=== PATIENT | male | born 1955 | race Caucasian/White ===

== ENCOUNTER 2022-08-26 17:28 | Emergency (ER) | payer BC, MEDICARE | END 2022-08-26 20:00 | disposition home or self-care (01) | LOC: JP.ED 17:28 | DX: S20.212A Contusion of left front wall of thorax, initial encounter (principal); S00.01XA Abrasion of scalp, initial encounter; W18.30XA Fall on same level, unspecified, initial encounter; W22.8XXA Striking against or struck by other objects, initial encounter | CPT/HCPCS: 71250; 99283 ==

== ENCOUNTER 2023-02-21 14:12 | Emergency (ER) | payer BC, MEDICARE | END 2023-02-21 18:21 | disposition home or self-care (01) | LOC: JP.ED 14:12 | DX: S06.0X9A Concussion with loss of consciousness of unspecified duration, initial encounter (principal); W01.198A Fall on same level from slipping, tripping and stumbling with subsequent striking against other object, initial encounter | CPT/HCPCS: 70450; 99284 ==

== ENCOUNTER 2023-10-06 08:41 | Day surgery (SDC) | payer MEDICARE ==
[2023-10-06] MEDS: Sodium Chloride 0.9% 1,000 ML IV SCH (09:31)
[2023-10-06] MEDS ORDERED: fentaNYL 50 MCG/ML SDV ONE (09:35)
[2023-10-06] MEDS ORDERED: Midazolam 1 MG/ML 2 ML SDV ONE (09:35)
[2023-10-06] MEDS ORDERED: Propofol 200 MG/20 ML SDV ONE (09:35)
== END 2023-10-06 11:50 | disposition home or self-care (01) ==
LOC: JP.SDS 08:41
PROVIDERS: ATTEND Surgery
DX: Z12.11 Encounter for screening for malignant neoplasm of colon (principal); K57.30 Diverticulosis of large intestine without perforation or abscess without bleeding
CPT/HCPCS: 00812; G0121; J2250; J2704; J3010; J7030

== ENCOUNTER 2024-12-19 08:14 | Day surgery (SDC) | payer MEDICARE ==
[2024-12-19 08:41] LABS: PLATELET COUNT,PLT 225.0 K/uL (130-375); RED BLOOD CELL COUNT 5.91 M/uL (4.14-5.76); WHITE BLOOD CELL COUNT,WBC 6.9 K/uL (3.2-11.0)
[2024-12-19] MEDS: Lactated Ringers 1,000 ML IV SCH (08:50)
[2024-12-19 08:57] LABS: BLOOD UREA NITROGEN,BUN 20.0 mg/dL (7-18); CARBON DIOXIDE,CO2 33.0 mmol/L (21-32); CHLORIDE,CL 102.0 mmol/L (100-108); CREATININE 1.2 mg/dL (0.8-1.3); EST CRCL DRUG DOSING (CG) 69.32 mL/min; ESTIMATED GFR 65.0 mL/min (>60); GLUCOSE RANDOM 99.0 mg/dL (74-106); POTASSIUM,K 3.8 mmol/L (3.6-5.2); SODIUM,NA 141.0 mmol/L (140-148)
[2024-12-19] MEDS: Nozin Nasal Sanitizer NASBOTH SCH ×2 (09:05→20:13)
[2024-12-19] MEDS ORDERED: Midazolam 1 MG/ML 2 ML SDV ONE (10:31)
[2024-12-19] MEDS ORDERED: fentaNYL 100 MCG/2 ML SDV ONE (10:31)
[2024-12-19] MEDS ORDERED: Propofol 200 MG/20 ML SDV ONE ×3 (10:32→12:12)
[2024-12-19] MEDS ORDERED: ePHEDrine 50 MG/ML SDV ONE (11:38)
[2024-12-19] MEDS ORDERED: Ondansetron 4 MG/2 ML SDV IVPUSH PRN (12:48)
[2024-12-19] MEDS ORDERED: Magnesium Hydroxide 400 MG/5 ML Susp 30 ML Cup PO PRN (12:48)
[2024-12-19] MEDS: Ketorolac 15 MG/ML SDV IVPUSH PRN (17:16)
[2024-12-20] MEDS: Fluticasone NASAL Spray 16 GM Bottle NASBOTH SCH (09:36)
[2024-12-20] MEDS: Multivitamins with Iron/Calcium/Folic Acid/Minerals Tab PO SCH (09:37)
[2024-12-20] MEDS: Aspirin 325 MG Tab.EC PO SCH (09:38)
== END 2024-12-20 15:30 | disposition home or self-care (01) ==
LOC: JP.SDS 08:14 → JP.MS 12:49 → JP.SDS 12-20 15:30
PROVIDERS: ATTEND Specialist
DX: M17.11 Unilateral primary osteoarthritis, right knee (principal); Z79.82 Long term (current) use of aspirin; Z79.899 Other long term (current) drug therapy
CPT/HCPCS: 27447; 36415; 73560; 80048; 85027; 97110; 97116; 97161; A4216; A9270; C1713; C1776; J0665; J0690; J1885; J2250; J2704; J3010; J7030; J7120; 01402-QZ